=== PATIENT | male | born 1975 | race African-American/Black ===

== ENCOUNTER → 2020-06-01 | Outpatient (CLI) | payer OTHER ==
--- NOTE | 2020-06-01 12:54 | XR ---
Left hip HISTORY: Left hip pain 2 views of the left hip Bone mineralization, joint spaces and alignment are maintained. Phleboliths are present in the pelvis . No fracture or dislocation. IMPRESSION: Normal left hip.
== END | disposition home or self-care (01) ==
LOC: RADXRMAIN 11:45
PROVIDERS: ATTEND Internal Medicine
DX: M25.552 Pain in left hip (principal)
CPT/HCPCS: 73502

== ENCOUNTER → 2021-04-10 | Outpatient (CLI) | payer BC, OTHER | END | disposition home or self-care (01) | LOC: LABWHC1 10:57 | PROVIDERS: ATTEND Emergency Medicine | DX: Z20.822 Contact with and (suspected) exposure to COVID-19 (principal) | CPT/HCPCS: U0003; C9803; U0005 ==

== ENCOUNTER → 2021-06-02 | Outpatient (CLI) | payer BC | END | disposition home or self-care (01) | DX: M19.012 Primary osteoarthritis, left shoulder (principal) ==

== ENCOUNTER 2023-04-20 07:50 | Observation (INO) | payer OTHER ==
[2023-04-20] MEDS ORDERED: SODIUM CHLORIDE 0.9% 1,000 ML IV STA ×2 (08:06)
[2023-04-20] MEDS ORDERED: ONDANSETRON 4 MG/2 ML VIAL IVP STA (08:06)
[2023-04-20] MEDS ORDERED: HYDROmorphone 0.5 MG/0.5 ML SYRINGE IVP STA (08:07)
--- NOTE | 2023-04-20 08:10 | ED ---
Abdominal Pain HPI - General Chief Complaint: Abdominal Pain Stated Complaint: R side abd pain Time Seen by Provider: 04/20/23 07:58 Source: patient, RN notes reviewed, old records reviewed Mode of arrival: ambulatory Limitations: no limitations - History of Present Illness Initial Comments: 47-year-old male presents to the emergency room with right lower quadrant pain for 2 days. Denies any fevers. Does have nausea but no vomiting. States normal bowel movement this morning. Pain is worse with any movements or palpation. Medical history of hypertension. Did not take his blood pressure medicine this morning. Occasional marijuana smoker. Denies drug use or daily alcohol use. MD Complaint: abdominal pain -: days(s) (2) Location: RLQ Radiation: none Severity scale (1-10): 8 Quality: cramping, sharp Consistency: constant Improves With: nothing Worsens With: movement Associated Symptoms: nausea - Related Data Allergies Allergy/AdvReac Type Severity Reaction Status Date / Time No Known Allergies Allergy Verified 04/20/23 07:55 Review of Systems ROS Statement: Those systems with pertinent positive or pertinent negative responses have been documented in the HPI. ROS Other: All systems not noted in ROS Statement are negative. Past Medical History Past Medical History: Hypertension History of Any Multi-Drug Resistant Organisms: None Reported Past Surgical History: No Surgical Hx Reported Past Psychological History: No Psychological Hx Reported Smoking Status: Never smoker Past Alcohol Use History: None Reported Past Drug Use History: Marijuana General Exam Limitations: no limitations General appearance: alert, in no apparent distress Head exam: Present: atraumatic Eye exam: Present: normal appearance. Absent: periorbital swelling ENT exam: Present: mucous membranes moist Neck exam: Present: full ROM. Absent: meningismus Respiratory exam: Present: normal lung sounds bilaterally. Absent: respiratory distress, accessory muscle use Cardiovascular Exam: Present: regular rate GI/Abdominal exam: Present: soft, tenderness (Right lower quadrant). Absent: distended, guarding, rigid Extremities exam: Present: full ROM, normal capillary refill. Absent: tenderness, pedal edema Neurological exam: Present: alert, oriented X3, normal gait Psychiatric exam: Present: normal affect, normal mood Skin exam: Present: warm, dry, normal color. Absent: cyanosis, diaphoretic, petechiae, pallor Course Vital Signs 04/20/23 04/20/23 04/20/23 07:53 08:41 08:44 Temperature 97.8 F Pulse Rate 64 47 L Respiratory 18 22 Rate Blood Pressure 170/109 140/82 O2 Sat by Pulse 100 100 97 Oximetry 04/20/23 09:00 Temperature Pulse Rate 59 L Respiratory 12 Rate Blood Pressure 140/82 O2 Sat by Pulse 100 Oximetry - Reevaluation(s) Reevaluation #1: 04/20/23 09:26 Dr Barnett at bedside to evaluate. Suggested to place in observation. Regular diet. Time: 09:26 Medical Decision Making - Medical Decision Making Was pt. sent in by a medical professional or institution (, PA, HRIS COORDINATOR, urgent care, hospital, or care home...) When possible be specific @ -No Did you speak to anyone other than the patient for history (EMS, parent, family, police, friend...)? What history was obtained from this source @ -No Did you review nursing and triage notes (agree or disagree)? Why? @ -I reviewed and agree with nursing and triage notes Were old charts reviewed (outside hosp., previous admission, EMS record, old EKG, old radiological studies, urgent care reports/EKG's, care home records)? Report findings @ -No old charts were reviewed Differential Diagnosis (chest pain, altered mental status, abdominal pain women, abdominal pain men, vaginal bleeding, weakness, fever, dyspnea, syncope, headache, dizziness, GI bleed, back pain, seizure, CVA, palpatations, mental health, musculoskeletal)? @ -Differential Abdominal Pain Men: Appendicitis, cholecystitis, diverticulosis, ischemic bowel, pancreatitis, hepatitis, UTI, gastroenteritis, AAA, incarcerated hernia, bowel obstruction, constipation, inflammatory bowel, hepatitis, peptic ulcer disease, splenic infarction, perforated viscus, testicular torsion, this is not meant to be an all-inclusive list EKG interpreted by me (3pts min.). @ -yes , EKG interpreted by me shows sinus rhythm with a ventricular rate of 65, CT interval 0.200, QRS 0.84, QTC 0.423, normal axis old EKG to compare. X-rays interpreted by me (1pt min.). @ -None done CT interpreted by me (1pt min.). @ -no U/S interpreted by me (1pt. min.). @ -None done What testing was considered but not performed or refused? (CT, X-rays, U/S, labs )? Why? @ -None What meds were considered but not given or refused? Why? @ -None Did you discuss the management of the patient with other professionals (professionals i.e. , PA, HRIS COORDINATOR, lab, RT, psych nurse, social service manager, animal cruelty investigator, teacher, learning and development officer, case finisher)? Give summary @ -Dr. Barnett at bedside to evaluate patient, we discussed that the patient should be placed in observation due to continued pain without evidence of appendicitis or abnormal lab values. Was smoking cessation discussed for >3mins.? @ -No Was critical care preformed (if so, how long)? @ -No Were there social determinants of health that impacted care today? How? (Homelessness, low income, unemployed, alcoholism, drug addiction, transportation, low edu. Level, literacy, decrease access to med. care, longterm, rehab)? @ -No Was there de-escalation of care discussed even if they declined (Discuss DNR or withdrawal of care, Hospice)? DNR status @ -No What co-morbidities impacted this encounter? (DM, HTN, Smoking, COPD, CAD, Cancer, CVA, ARF, Chemo, Hep., AIDS, mental health diagnosis, sleep apnea, morbid obesity)? @ -Hypertension Was patient admitted / discharged? Hospital course, mention meds given and ro malcolm, prescriptions, significant lab abnormalities, going to OR and other pertinent info. @ -Admitted Patient presents with right lower quadrant abdominal pain for 2 days. Denies any fevers. Does have nausea and vomiting. Denies any penile discharge dysuria or testicular pain. No chest pain or difficulty breathing. Durin physical exam patient became diaphoretic and began vomiting clear/yellow fluid. EKG interpreted by me shows sinus rhythm with a ventricular rate of 65, CT interval 0.200, QRS 0.84, QTC 0.423, normal axis old EKG to compare. CBC and electrolytes are unremarkable. Lactic acid is negative. Troponin is negative at 0.012. CT abdomen and pelvis with contrast shows no evidence of obstructive uropathy or renal calculus. The appendix appears normal. No right lower quadrant finding to explain patient's pain. Moderate disc degeneration changes throughout the spine. Dr. Barnett at bedside to evaluate, states no clear evidence for appendicitis. Due to patient's continued complaint of right lower quadrant abdominal pain will be placed in observation. Patient is agreeable to this plan of care. Per Dr Barnett patient can have a regular diet. Case discussed with Dr. Humphries. Undiagnosed new problem with uncertain prognosis? @ -No Drug Therapy requiring intensive monitoring for toxicity (Heparin, Nitro, Insulin, Cardizem)? @ -No Were any procedures done? @ -No Diagnosis/symptom? @ -Intractable abdominal pain Acute, or Chronic, or Acute on Chronic? @ -Acute Uncomplicated (without systemic symptoms) or Complicated (systemic symptoms)? @ -Complicated Side effects of treatment? @ -No Exacerbation, Progression, or Severe Exacerbation? @ -No Poses a threat to life or bodily function? How? (Chest pain, [place], [place], pneumonia, PE, COPD, DKA, ARF, appy, cholecystitis, CVA, Diverticulitis, Homicidal, Suicidal, threat to staff... and all critical care pts) @ -No - Lab Data Result diagrams: 04/20/23 08:28 04/20/23 08:28 Lab Results 04/20/23 04/20/23 04/20/23 Range/Units 08:20 08:22 08:28 WBC 4.3 (3.8-10.6) k/uL RBC 4.64 (4.30-5.90) m/uL Hgb 13.3 (13.0-17.5) gm/dL Hct 41.6 (39.0-53.0) % MCV 89.6 (80.0-100.0) fL MCH 28.8 (25.0-35.0) pg MCHC 32.1 (31.0-37.0) g/dL RDW 14.0 (11.5-15.5) % Plt Count 168 (150-450) k/uL MPV 7.8 Neutrophils % 46 % Lymphocytes % 42 % Monocytes % 5 % Eosinophils % 3 % Basophils % 1 % Neutrophils # 2.0 (1.3-7.7) k/uL Lymphocytes # 1.8 (1.0-4.8) k/uL Monocytes # 0.2 (0-1.0) k/uL Eosinophils # 0.1 (0-0.7) k/uL Basophils # 0.0 (0-0.2) k/uL PT (9.0-12.0) sec INR (<1.2) APTT (22.0-30.0) sec Sodium (137-145) mmol/L Potassium (3.5-5.1) mmol/L Chloride (98-107) mmol/L Carbon Dioxide (22-30) mmol/L Anion Gap mmol/L BUN (9-20) mg/dL Creatinine (0.66-1.25) mg/dL Est GFR (CKD-EPI)AfAm (>60 ml/min/1.73 sqM) Est GFR (CKD-EPI)NonAf (>60 ml/min/1.73 sqM) Glucose (74-99) mg/dL Plasma Lactic Acid Alex (0.7-2.0) mmol/L Calcium (8.4-10.2) mg/dL Total Bilirubin (0.2-1.3) mg/dL AST (17-59) U/L ALT (4-49) U/L Alkaline Phosphatase (38-126) U/L Troponin I (0.000-0.034) ng/mL Total Protein (6.3-8.2) g/dL Albumin (3.5-5.0) g/dL Amylase (30-110) U/L Lipase (23-300) U/L Blood Type O Positive Blood Type Confirm O Positive Blood Type Recheck No Previous Record Bld Type Recheck Status CABO Indicated Antibody Screen NEGATIVE Spec Expiration Date 04/23/2023 - 232104/20/23 04/20/23 04/20/23 Range/Units 08:28 08:28 08:28 WBC (3.8-10.6) k/uL RBC (4.30-5.90) m/uL Hgb (13.0-17.5) gm/dL Hct (39.0-53.0) % MCV (80.0-100.0) fL MCH (25.0-35.0) pg MCHC (31.0-37.0) g/dL RDW (11.5-15.5) % Plt Count (150-450) k/uL MPV Neutrophils % % Lymphocytes % % Monocytes % % Eosinophils % % Basophils % % Neutrophils # (1.3-7.7) k/uL Lymphocytes # (1.0-4.8) k/uL Monocytes # (0-1.0) k/uL Eosinophils # (0-0.7) k/uL Basophils # (0-0.2) k/uL PT 10.4 (9.0-12.0) sec INR 1.0 (<1.2) APTT 25.4 (22.0-30.0) sec Sodium 140 (137-145) mmol/L Potassium 4.2 (3.5-5.1) mmol/L Chloride 106 (98-107) mmol/L Carbon Dioxide 25 (22-30) mmol/L Anion Gap 9 mmol/L BUN 13 (9-20) mg/dL Creatinine 1.09 (0.66-1.25) mg/dL Est GFR (CKD-EPI)AfAm >90 (>60 ml/min/1.73 sqM) Est GFR (CKD-EPI)NonAf 79 (>60 ml/min/1.73 sqM) Glucose 101 H (74-99) mg/dL Plasma Lactic Acid Alex 1.5 (0.7-2.0) mmol/L Calcium 9.7 (8.4-10.2) mg/dL Total Bilirubin 0.6 (0.2-1.3) mg/dL AST 34 (17-59) U/L ALT 22 (4-49) U/L Alkaline Phosphatase 54 (38-126) U/L Troponin I (0.000-0.034) ng/mL Total Protein 7.8 (6.3-8.2) g/dL Albumin 4.5 (3.5-5.0) g/dL Amylase 93 (30-110) U/L Lipase 87 (23-300) U/L Blood Type Blood Type Confirm Blood Type Recheck Bld Type Recheck Status Antibody Screen Spec Expiration Date 04/20/23 Range/Units 08:28 WBC (3.8-10.6) k/uL RBC (4.30-5.90) m/uL Hgb (13.0-17.5) gm/dL Hct (39.0-53.0) % MCV (80.0-100.0) fL MCH (25.0-35.0) pg MCHC (31.0-37.0) g/dL RDW (11.5-15.5) % Plt Count (150-450) k/uL MPV Neutrophils % % Lymphocytes % % Monocytes % % Eosinophils % % Basophils % % Neutrophils # (1.3-7.7) k/uL Lymphocytes # (1.0-4.8) k/uL Monocytes # (0-1.0) k/uL Eosinophils # (0-0.7) k/uL Basophils # (0-0.2) k/uL PT (9.0-12.0) sec INR (<1.2) APTT (22.0-30.0) sec Sodium (137-145) mmol/L Potassium (3.5-5.1) mmol/L Chloride (98-107) mmol/L Carbon Dioxide (22-30) mmol/L Anion Gap mmol/L BUN (9-20) mg/dL Creatinine (0.66-1.25) mg/dL Est GFR (CKD-EPI)AfAm (>60 ml/min/1.73 sqM) Est GFR (CKD-EPI)NonAf (>60 ml/min/1.73 sqM) Glucose (74-99) mg/dL Plasma Lactic Acid Alex (0.7-2.0) mmol/L Calcium (8.4-10.2) mg/dL Total Bilirubin (0.2-1.3) mg/dL AST (17-59) U/L ALT (4-49) U/L Alkaline Phosphatase (38-126) U/L Troponin I <0.012 (0.000-0.034) ng/mL Total Protein (6.3-8.2) g/dL Albumin (3.5-5.0) g/dL Amylase (30-110) U/L Lipase (23-300) U/L Blood Type Blood Type Confirm Blood Type Recheck Bld Type Recheck Status Antibody Screen Spec Expiration Date - EKG Data -: EKG Interpreted by Me EKG shows normal: sinus rhythm (EKG interpreted by me shows sinus rhythm with a ventricular rate of 65, CT interval 0.200, QRS 0.84, QTC 0.423, normal axis old EKG to compare.) Disposition Clinical Impression: Abdominal pain Disposition: ADMITTED IP TO THIS [facility] Referrals: Antonella Hawthorne MD [Primary Care Provider] - 1-2 days Decision Date: 04/20/23 Decision Time: 09:29
[2023-04-20 08:43] LABS: Basophils % (A) 1 %; Eosinophils # (A) 0.1 k/uL (0-0.7); Eosinophils % (A) 3 %; HCT 41.6 % (39.0-53.0); HGB 13.3 gm/dL (13.0-17.5); Lymphocytes # (A) 1.8 k/uL (1.0-4.8); Lymphocytes % (A) 42 %; MCH 28.8 pg (25.0-35.0); MCHC 32.1 g/dL (31.0-37.0); MCV 89.6 fL (80.0-100.0); Mean Platelet Volume 7.8; Monocytes # (A) 0.2 k/uL (0-1.0); Monocytes % (A) 5 %; Neutrophils % (A) 46 %; Platelet Count 168 k/uL (150-450); RBC 4.64 m/uL (4.30-5.90); WBC 4.3 k/uL (3.8-10.6)
[2023-04-20 08:53] LABS: ALT 22 U/L (4-49); AST 34 U/L (17-59); African American GFR (CKD) >90 (>60 ml/min/1.73 sqM); Albumin 4.5 g/dL (3.5-5.0); Alkaline Phosphatase 54 U/L (38-126); Amylase 93 U/L (30-110); Anion Gap 9 mmol/L; Blood Urea Nitrogen 13 mg/dL (9-20); Calcium 9.7 mg/dL (8.4-10.2); Carbon Dioxide 25 mmol/L (22-30); Chloride 106 mmol/L (98-107); Glucose 101 mg/dL (74-99); Lipase 87 U/L (23-300); Non-African American GFR(CKD) 79 (>60 ml/min/1.73 sqM); Potassium 4.2 mmol/L (3.5-5.1); Sodium 140 mmol/L (137-145); Total Bilirubin 0.6 mg/dL (0.2-1.3); Total Protein 7.8 g/dL (6.3-8.2)
[2023-04-20 08:55] LABS: Partial Thromboplastin Time 25.4 sec (22.0-30.0); Prothrombin Time 10.4 sec (9.0-12.0)
--- NOTE | 2023-04-20 09:29 | CT ---
EXAMINATION TYPE: CT abdomen pelvis w con CT DLP: 1267.3 mGycm, Automated exposure control for dose reduction was used. DATE OF EXAM: 04/20/2023 9:18 AM COMPARISON: None CLINICAL INDICATION:Male, 47 years old with history of abdominal pain; RLQ pain TECHNIQUE: Axial CT of the abdomen and pelvis. Sagittal and coronal reformats were created on a [employer] workstation. Contrast used:100ml mL of Isovue 300 with IV Contrast, Oral contrast used: without Oral Contrast FINDINGS: LOWER CHEST: Unremarkable ABDOMEN LIVER: Unremarkable GALLBLADDER AND BILE DUCTS: Unremarkable. PANCREAS: Unremarkable. SPLEEN: Unremarkable. ADRENAL GLANDS: Unremarkable. KIDNEYS AND URETERS: No evidence of hydronephrosis or renal calculus. Right renal cyst. PELVIS BLADDER: Unremarkable REPRODUCTIVE: Unremarkable. ABDOMEN & PELVIS STOMACH AND BOWEL: No evidence of bowel obstruction. Scattered colonic diverticula are present. The a ppendix is normal. PERITONEUM/RETROPERITONEUM: No evidence of pneumoperitoneum or free fluid. VASCULATURE: No evidence of aortic aneurysm. Scattered atherosclerosis of the arterial vasculature. MUSCULOSKELETAL: No acute osseous abnormalities. Moderate disc degeneration changes are present throu ghout the thoracolumbar spine. LYMPH NODES: No gross evidence for lymphadenopathy. SOFT TISSUE/ABDOMINAL WALL: Unremarkable IMPRESSION: 1. No evidence of obstructive uropathy or renal calculus. The appendix appears normal. No right lowe r quadrant finding to explain the patient's pain. 2. Moderate disc degeneration changes throughout the spine.
[2023-04-20] MEDS ORDERED: KETOROLAC 15 MG/ML 1 ML VIAL IVP PRN (09:44)
[2023-04-20] MEDS ORDERED: ACETAMINOPHEN TAB 325 MG TAB PO PRN (09:44)
[2023-04-20] MEDS ORDERED: IBUPROFEN 400 MG TAB PO PRN (09:44)
[2023-04-20] MEDS ORDERED: NALOXONE 0.4 MG/ML 1 ML VIAL IV PRN (09:44)
--- NOTE | 2023-04-20 10:58 | P.GSCN ---
History of Present Illness Consult date: 04/20/23 Reason for Consult: Right-sided abdominal pain History of present illness: This is a 47-year-old male who has a four-day history of right-sided abdominal pain. Patient states the pain started on . It was in the right lower quadrant. Patient states that he has been eating. He has had normal bowel movements. She was able to work on and Friday. His pain increased last night which brought him to mention. His CAT scan shows no signs of appendicitis. His white count is normal. Past Medical History Past Medical History: Hypertension History of Any Multi-Drug Resistant Organisms: None Reported Past Surgical History: No Surgical Hx Reported Past Psychological History: No Psychological Hx Reported Smoking Status: Never smoker Past Alcohol Use History: None Reported Past Drug Use History: Marijuana Medications and Allergies Allergies Allergy/AdvReac Type Severity Reaction Status Date / Time No Known Allergies Allergy Verified 04/20/23 07:55 Surgical - Exam Vital Signs Temp Pulse Resp BP Pulse Ox 97.8 F 64 18 170/109 100 04/20/23 07:53 04/20/23 07:53 04/20/23 07:53 04/20/23 07:53 04/20/23 07:53 - General well developed, well nourished, no distress - Eyes PERRL - ENT normal pinna - Neck no masses - Respiratory normal expansion - Cardiovascular Rhythm: regular - Abdomen Mild tenderness right lower quadrant. There is no rebound or guarding. Abdomen: soft Results - Labs 04/20/23 08:28 04/20/23 08:28 Abnormal Lab Results - Last 24 Hours (Table) 04/20/23 Range/Units 08:28 Glucose 101 H (74-99) mg/dL Diabetes panel 04/20/23 Range/Units 08:28 Sodium 140 (137-145) mmol/L Potassium 4.2 (3.5-5.1) mmol/L Chloride 106 (98-107) mmol/L Carbon Dioxide 25 (22-30) mmol/L BUN 13 (9-20) mg/dL Creatinine 1.09 (0.66-1.25) mg/dL Glucose 101 H (74-99) mg/dL Calcium 9.7 (8.4-10.2) mg/dL AST 34 (17-59) U/L ALT 22 (4-49) U/L Alkaline Phosphatase 54 (38-126) U/L Total Protein 7.8 (6.3-8.2) g/dL Albumin 4.5 (3.5-5.0) g/dL Calcium panel 04/20/23 Range/Units 08:28 Calcium 9.7 (8.4-10.2) mg/dL Albumin 4.5 (3.5-5.0) g/dL Pituitary panel 04/20/23 Range/Units 08:28 Sodium 140 (137-145) mmol/L Potassium 4.2 (3.5-5.1) mmol/L Chloride 106 (98-107) mmol/L Carbon Dioxide 25 (22-30) mmol/L BUN 13 (9-20) mg/dL Creatinine 1.09 (0.66-1.25) mg/dL Glucose 101 H (74-99) mg/dL Calcium 9.7 (8.4-10.2) mg/dL Adrenal panel 04/20/23 Range/Units 08:28 Sodium 140 (137-145) mmol/L Potassium 4.2 (3.5-5.1) mmol/L Chloride 106 (98-107) mmol/L Carbon Dioxide 25 (22-30) mmol/L BUN 13 (9-20) mg/dL Creatinine 1.09 (0.66-1.25) mg/dL Glucose 101 H (74-99) mg/dL Calcium 9.7 (8.4-10.2) mg/dL Total Bilirubin 0.6 (0.2-1.3) mg/dL AST 34 (17-59) U/L ALT 22 (4-49) U/L Alkaline Phosphatase 54 (38-126) U/L Total Protein 7.8 (6.3-8.2) g/dL Albumin 4.5 (3.5-5.0) g/dL - Imaging CT scan - abdomen: report reviewed (No evidence of appendicitis) Assessment and Plan Assessment: Right lower quadrant pain. Unsure of etiology. Patient's CAT scan shows no signs of appendicitis. His white count is normal. There is no left shift. Patient will be admitted for pain management and observation.
[2023-04-20] MEDS: HYDROmorphone 1 MG/ML 1 ML SYRINGE IVP PRN ×2 (13:24→21:33)
[2023-04-20] MEDS: amLODIPine 10 MG TAB PO SCH (13:35)
[2023-04-20] MEDS: lisinopriL 20 MG TAB PO SCH (15:05)
--- NOTE | 2023-04-20 19:34 | P.HPIM ---
History of Present Illness H&P Date: 04/20/23 Chief Complaint: Abdominal pain 47-year-old male presents to the emergency room with right lower quadrant pain for 2 days. Denies any fevers. Does have nausea but no vomiting. States normal bowel movement this morning. Pain is worse with any movements or palpation. Medical history of hypertension. Did not take his blood pressure medicine this morning. Occasional marijuana smoker. Denies drug use or daily alcohol use. EKG interpreted by me shows sinus rhythm with a ventricular rate of 65, MS interval 0.200, QRS 0.84, QTC 0.423, normal axis old EKG to compare. CBC and electrolytes are unremarkable. Lactic acid is negative. Troponin is negative at 0.012. CT abdomen and pelvis with contrast shows no evidence of obstructive uropathy or renal calculus. The appendix appears normal. No right lower quadrant finding to explain patient's pain. Moderate disc degeneration changes throughout the spine. Dr. Barnett at bedside to evaluate, states no clear evidence for appendicitis. Due to patient's continued complaint of right lower quadrant abdominal pain will be placed in observation. Review of Systems REVIEW OF SYSTEMS: CONSTITUTIONAL: No fever, no malaise, no fatigue. HEENT: No recent visual problems or hearing problems. Denied any sore throat. CARDIOVASCULAR: No chest pain, orthopnea, PND, no palpitations, no syncope. PULMONARY: No shortness of breath, no cough, no hemoptysis. GASTROINTESTINAL: No diarrhea, no nausea, no vomiting, no abdominal pain. NEUROLOGICAL: No headaches, no weakness, no numbness. HEMATOLOGICAL: Denies any bleeding or petechiae. GENITOURINARY: Denies any burning micturition, frequency, or urgency. MUSCULOSKELETAL/RHEUMATOLOGICAL: Denies any joint pain, swelling, or any muscle pain. ENDOCRINE: Denies any polyuria or polydipsia. The rest of the 14-point review of systems is negative. Past Medical History Past Medical History: Hypertension History of Any Multi-Drug Resistant Organisms: None Reported Past Surgical History: No Surgical Hx Reported Past Psychological History: No Psychological Hx Reported Smoking Status: Never smoker Past Alcohol Use History: None Reported Past Drug Use History: Marijuana - Past Family History Father Family Medical History: Cancer, Hypertension Additional Family Medical History / Comment(s): throat cancer - Mother Family Medical History: Chest Pain / Angina, Hypertension Additional Family Medical History / Comment(s): "mother from angina" Medications and Allergies Home Medications Medication Instructions Recorded Confirmed Type Cephalexin [Keflex] 500 mg PO Q12HR 04/20/23 04/20/23 History Mupirocin 2% Oint [Bactroban 2% 1 applic TOPICAL TID 04/20/23 04/20/23 History Oint] SILVER sulfADIAZINE Cream 1 applic TOPICAL DAILY 04/20/23 04/20/23 History [Silvadene 1% Cream] Sildenafil Citrate 100 mg PO DAILY PRN 04/20/23 04/20/23 History amLODIPine [Norvasc] 10 mg PO DAILY 04/20/23 04/20/23 History lisinopriL 40 mg PO DAILY 04/20/23 04/20/23 History Allergies Allergy/AdvReac Type Severity Reaction Status Date / Time No Known Allergies Allergy Verified 04/20/23 12:45 Physical Exam Vitals: Vital Signs Temp Pulse Resp BP Pulse Ox 04/20/23 13:15 63 20 193/110 97 04/20/23 12:30 47 L 23 170/101 99 04/20/23 12:00 47 L 18 162/88 100 04/20/23 11:30 66 18 167/92 99 04/20/23 11:00 48 L 16 154/96 100 04/20/23 10:30 50 L 18 168/98 100 04/20/23 10:00 48 L 16 191/100 99 04/20/23 09:30 48 L 16 140/82 100 04/20/23 09:00 59 L 12 140/82 100 04/20/23 08:44 47 L 22 140/82 97 04/20/23 08:41 100 04/20/23 07:53 97.8 F 64 18 170/109 100 Intake and Output 04/19/23 04/20/23 04/20/23 22:59 06:59 14:59 Other: Weight 99.79 kg General appearance: alert, in no apparent distress Head exam: Present: atraumatic Eye exam: Present: normal appearance. Absent: periorbital swelling ENT exam: Present: mucous membranes moist Neck exam: Present: full ROM. Absent: meningismus Respiratory exam: Present: normal lung sounds bilaterally. Absent: respiratory distress, accessory muscle use Cardiovascular Exam: Present: regular rate GI/Abdominal exam: Present: soft, tenderness (Right lower quadrant). Absent: distended, guarding, rigid Extremities exam: Present: full ROM, normal capillary refill. Absent: tenderness, pedal edema Neurological exam: Present: alert, oriented X3, normal gait Psychiatric exam: Present: normal affect, normal mood Skin exam: Present: warm, dry, normal color. Absent: cyanosis, diaphoretic, petechiae, pallor Results CBC & Chem 7: 04/20/23 08:28 04/20/23 08:28 Labs: Abnormal Lab Results - Last 24 Hours (Table) 04/20/23 Range/Units 08:28 Glucose 101 H (74-99) mg/dL Assessment and Plan Assessment: 1. Intractable abdominal pain Patient states that he has been eating. He has had normal bowel movements. She was able to work on and Friday. His pain increased last night which brought him to mention. His CAT scan shows no signs of appendicitis. His white count is normal. Gen. surgery is on board and recommending to admit patient for observation and pain control 2. Uncontrolled hypertension; Norvasc 10 mg daily, lisinopril 40 mg daily - We will monitor blood pressure closely and make some adjustments if blood pressure remains markedly elevated DVT prophylaxis; SCDs CODE STATUS; full code
[2023-04-21 07:31] VITALS: BP 145/84; PULSE 59; RESP 18; TEMP 99.1
[2023-04-21] MEDS: lisinopriL 20 MG TAB PO SCH (08:18)
[2023-04-21] MEDS: amLODIPine 10 MG TAB PO SCH (08:18)
[2023-04-21] MEDS ORDERED: lisinopriL 20 MG TAB PO SCH (09:00)
--- NOTE | 2023-04-21 09:49 | P.PN ---
Progress Note - Text Progress Note Date: 04/21/23 The patient has 0.6. He states his pain is resolved. He wants to go home. On exam vital signs are stable. Abdomen soft. There is no abdominal tenderness. Resolving right lower quadrant pain. Patient was discharged home. He'll follow-up with his PCP.
[2023-04-21 11:40] LABS: Basophils # (A) 0.03 X 10*3/uL (0.00-0.10); Basophils % (A) 0.6 %; Eosinophils # (A) 0.04 X 10*3/uL (0.04-0.35); Eosinophils % (A) 0.7 %; HCT 37.9 % (39.6-50.0); HGB 12.6 g/dL (13.0-17.0); Immature Grans, Automated 0.2 %; Lymphocytes # (A) 1.84 X 10*3/uL (0.90-5.00); Lymphocytes % (A) 34.1 %; MCH 29.1 pg (27.0-32.0); MCHC 33.2 g/dL (32.0-37.0); MCV 87.5 fL (80.0-97.0); Mean Platelet Volume 10.5 fL (9.5-12.2); Monocytes # (A) 0.37 X 10*3/uL (0.20-1.00); Monocytes % (A) 6.9 %; NRBC Per 100 WBC 0 /100 WBCS (0.0-0.0); Neutrophils % (A) 57.5 %; Platelet Count 185 X 10*3/uL (140-440); RBC 4.33 X 10*6/uL (4.40-5.60); RDW 13.9 % (11.5-14.5); WBC 5.39 X 10*3/uL (4.50-10.00)
[2023-04-21 11:49] LABS: African American GFR (CKD) 105.4 (60.0-200.0); BUN/Creat Ratio 9.31 Ratio (12.00-20.00); Blood Urea Nitrogen 9.1 mg/dL (9.0-27.0); Calcium 9.4 mg/dL (8.7-10.3); Carbon Dioxide 23.5 mmol/L (20.0-27.5)
--- NOTE | 2023-04-25 20:54 | P.DS ---
Providers Date of admission: 04/20/23 11:43 Expected date of discharge: 04/21/23 Attending physician: Fadi Koo MD Consults: 04/20/23 09:44 Consult Physician Routine Consulting Provider: Clayton Barnett Consult Reason/Comments: Right lower quadrant abdominal pain Do you want consulting provider notified?: Already Contacted Primary care physician: Marine Berman [facility] Course: 47-year-old male presents to the emergency room with right lower quadrant pain for 2 days. Denies any fevers. Does have nausea but no vomiting. States normal bowel movement this morning. Pain is worse with any movements or palpation. Medical history of hypertension. Did not take his blood pressure medicine this morning. Occasional marijuana smoker. Denies drug use or daily alcohol use. EKG interpreted by me shows sinus rhythm with a ventricular rate of 65, NH interval 0.200, QRS 0.84, QTC 0.423, normal axis old EKG to compare. CBC and electrolytes are unremarkable. Lactic acid is negative. Troponin is negative at 0.012. CT abdomen and pelvis with contrast shows no evidence of obstructive uropathy or renal calculus. The appendix appears normal. No right lower quadrant finding to explain patient's pain. Moderate disc degeneration changes throughout the spine. Dr. Barnett at bedside to evaluate, states no clear evidence for appendicitis. Due to patient's continued complaint of right lower quadrant abdominal pain will be placed in observation. 1. Intractable abdominal pain Patient states that he has been eating. He has had normal bowel movements. She was able to work on and Friday. His pain increased last night which brought him to mention. His CAT scan shows no signs of appendicitis. His white count is normal. Gen. surgery is on board and recommending to admit patient for observation and pain control 2. Uncontrolled hypertension; Norvasc 10 mg daily, lisinopril 40 mg daily - We will monitor blood pressure closely and make some adjustments if blood pressure remains markedly elevated Resolving right lower quadrant pain. Patient was discharged home. He'll follow-up with his PCP. Patient Condition at Discharge: Good Plan - Discharge Summary Discharge Rx Participant: No New Discharge Prescriptions: Continue lisinopriL 40 mg PO DAILY SILVER sulfADIAZINE Cream [Silvadene 1% Cream] 1 applic TOPICAL DAILY Sildenafil Citrate 100 mg PO DAILY PRN PRN Reason: E.D. amLODIPine [Norvasc] 10 mg PO DAILY Mupirocin 2% Oint [Bactroban 2% Oint] 1 applic TOPICAL TID Cephalexin [Keflex] 500 mg PO Q12HR Discharge Medication List Cephalexin [Keflex] 500 mg PO Q12HR 04/20/23 [History] Mupirocin 2% Oint [Bactroban 2% Oint] 1 applic TOPICAL TID 04/20/23 [History] SILVER sulfADIAZINE Cream [Silvadene 1% Cream] 1 applic TOPICAL DAILY 04/20/23 [History] Sildenafil Citrate 100 mg PO DAILY PRN 04/20/23 [History] amLODIPine [Norvasc] 10 mg PO DAILY 04/20/23 [History] lisinopriL 40 mg PO DAILY 04/20/23 [History] Follow up Appointment(s)/Referral(s): Antonella Hawthorne MD [Primary Care Provider] - 1-2 days (Patient instructed to make a follow-up appointment) Patient Instructions/Handouts: Acute Abdominal Pain (DC) Discharge Disposition: HOME SELF-CARE
== END 2023-04-21 11:30 | disposition home or self-care (01) ==
LOC: EC 07:50 → INTOOBSV 11:43 → 6NMEDSUR 11:43 → 5NMEDONC 12:58 → UNDODISIN 04-21 11:30 → UNDODISOB 04-21 11:30
PROVIDERS: ADMIT Internal Medicine; ATTEND Internal Medicine
DX: R10.31 Right lower quadrant pain (principal); I10 Essential (primary) hypertension; Z79.899 Other long term (current) drug therapy
CPT/HCPCS: 96361 ×2; 96376 ×2; 96374; 96375; 99285; 36415; 93005; 86900; 86901; 80053; 80048; 82150; 83605; 83690; 84484; 85025 ×2; 85610; 85730; 86850; 74177; G0378 ×2; J2405; J1170 ×2; Q9967

== ENCOUNTER → 2023-04-22 | Outpatient (CLI) | payer OTHER ==
--- NOTE | 2023-04-22 16:12 | XR ---
EXAMINATION TYPE: XR hand complete RT DATE OF EXAM: 04/22/2023 CLINICAL HISTORY: BURN ACROSS KNUCKLES ON RT HAND AT WORK 04/03/23 TECHNIQUE: Frontal, lateral and oblique images of the right hand are obtained. COMPARISON: None. FINDINGS: There is no acute fracture/dislocation evident. Healed fracture right fifth metacarpal. Th e joint spaces appear within normal limits. The overlying soft tissue appears unremarkable. IMPRESSION: There is no acute fracture or dislocation ICD 10 NO FRACTURE, INITIAL EVALUATION
== END | disposition home or self-care (01) ==
LOC: RADXRMAIN 15:36
PROVIDERS: ATTEND Emergency Medicine
DX: T23.001A Burn of unspecified degree of right hand, unspecified site, initial encounter (principal)